=== PATIENT | male | born 1960 | race Caucasian/White ===

== ENCOUNTER 2023-06-19 11:16 | Emergency (ER) | payer OTHER, SELFPAY ==
[2023-06-19] VITALS (19 sets, daily range): BP systolic 113–137; BP diastolic 74–90; PULSE 63–75; RESP 12–20; TEMP 36.4; O2SAT 97–99
--- NOTE | ~2023-06-19 | XR_ITS ---
AP view of the pelvis and AP and lateral views of the left hip Clinical history: Pain Findings: No acute fracture or dislocation is seen. Osseous alignment is anatomic. Bilateral hip and SI joint spaces are preserved. Soft tissues are unremarkable. Impression: No significant abnormality is seen. Reviewed, dictated and finalized at [facility]. ER PRESS OPERATOR Impression: No significant abnormality is seen.
--- NOTE | ~2023-06-19 | XR_ITS ---
Right ankle Technique: AP, oblique, and lateral views were obtained. Clinical History: Pain Findings: No acute fracture or dislocation is seen. Osseous alignment is anatomic. Ankle mortise and other visualized joint spaces are preserved. Soft tissues are otherwise unremarkable. Impression: Unremarkable right ankle. Reviewed, dictated and finalized at location . [employer] Impression: Unremarkable right ankle.
--- NOTE | 2023-06-19 13:32 | ED.FALL ---
HPI - Fall General Chief Complaint: Fall Stated Complaint: fall, ankle pain Time Seen by Provider: 06/19/23 12:01 62-year-old male present to the emergency department for evaluation after having a fall down some industrial stairs. 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 Patient states he was walking down the steps was holding onto the hand rails but his foot slipped causing his hands to be pulled from the hand rails and he fell down the steps. Patient states he injured his left hip, right ankle. Patient denies striking his head denies loss consciousness. Patient was able to ambulate due to the right ankle pain. Patient denies any other pain or injury. Patient is not on any blood thinners. Related Data Allergies Allergy/AdvReac Type Severity Reaction Status Date / Time Mushroom Allergy Mild Nausea and Uncoded 06/19/23 11:31 Vomiting Review of Systems Review of Systems: All systems reviewed & are unremarkable except as noted in HPI and below Exam Narrative: APPEARANCE: Well appearing, no pain, no distress, well-nourished. HEAD: normocephalic, atraumatic. EYES: PERRLA/EOMI, conjunctivae clear. NOSE: Normal no drainage NECK: Supple. No adenopathy, no masses. RESPIRATORY: Airway patent, respirations nonlabored. Clear to auscultation bilaterally, no rales, rhonchi, wheezing. CARDIOVASCULAR: Regular rate and rhythm without murmurs rubs or gallops. ABDOMINAL: Soft, nontender, nondistended, normal bowel sounds MUSCULOSKELETAL: Hematoma to left lateral hip with overlying abrasion, tenderness to medial and lateral right ankle with no proximal tib-fib tenderness. No tenderness to right foot. Neurovascularly intact. NEURO: Alert. Cranial nerves II through XII intact. Good gait. Good coordination SKIN: Warm, dry. Normal Color PSYCHIATRIC: Normal affect/mood. Course Course Emergency Course: 62-year-old male present to the ED for evaluation for injury to left hip and right ankle. X-rays were negative for acute fracture dislocation. Patient had no evidence of head injury, denied any head injury and had no tenderness to cervical thoracic or lumbar spine. Patient was provided an Seamus wrap for comfort for the right ankle and provided crutches for limited weight-bearing. Patient was treated with Toradol and Flexeril in the ED. Patient was provided Flexeril for home encouraged to take Tylenol and ibuprofen for pain control. Patient was encouraged of close follow-up with primary care physician. All questions concerns were addressed. Patient was well-appearing at time of discharge. Vital Signs Vital signs: Vital Signs Pulse Rate 75 06/19/23 11:20 Respiratory Rate 16 06/19/23 11:20 Blood Pressure 127/88 06/19/23 11:20 Pulse Oximetry 99 06/19/23 11:20 Oxygen Delivery Room Air 06/19/23 11:20 Temperature 97.6 F 06/19/23 11:33 Pulse Rate 72 06/19/23 13:16 Respiratory Rate 15 06/19/23 13:16 Blood Pressure 120/82 06/19/23 13:46 Pulse Oximetry 98 06/19/23 13:46 Oxygen Delivery Room Air 06/19/23 11:20 MDM - Fall Differential Diagnosis Differential diagnosis: Likely other Imaging Data Radiologist's impression: Impressions Ankle X-Ray 06/19/23 12:00 Impression: Unremarkable right ankle. Hip/Pelvis X-Ray 06/19/23 12:00 Impression: No significant abnormality is seen. Discharge Plan Discharge Clinical Impression: Acute pain of left hip, Right ankle sprain Patient Disposition: Home, Self-Care Condition: Stable Instructions: Antibiotic Form, General Patient Instructions, Ankle Sprain (DC), Crutch Instructions (ED) Additional Instructions: Seamus wrap for increased support and comfort of the right ankle. Crutches for limited weight-bearing. Tylenol and ibuprofen for pain control. Flexeril as needed for muscle spasm. Have close follow-up with your primary care physician. If you have any worsening symptoms and please
[2023-06-19] MEDS: KETOROLAC 15 MG/ML VIAL (*BKC) IV PUSH (14:12)
[2023-06-19] MEDS: CYCLOBENZAPRINE HCL 10 MG TABLET PO (14:12)
== END 2023-06-19 14:33 | disposition home or self-care (01) ==
PROVIDERS: Emergency Provider Emergency Medicine
DX: S79.912A Unspecified injury of left hip, initial encounter (principal); S93.401A Sprain of unspecified ligament of right ankle, initial encounter; W10.9XXA Fall (on) (from) unspecified stairs and steps, initial encounter
CPT/HCPCS: 73502; 73610; 96374; 99284; A9270; J1885